=== PATIENT | male | born 1980 | race Caucasian/White ===

== ENCOUNTER → 2020-05-22 | Outpatient (CLI) | payer BC ==
[~2020-05-22] MED LIST: COLLAGEN HYDROLY1 GM MC; HYDROCODON-ACE1 EAC7 PO; MULTIVITAMINS1 EAC7 PO; VITAMIN D325 MC5 PO; ZOLPIDEM TARTRA10 MG PO
== END ==
LOC: M.LAB 17:27
PROVIDERS: ATTEND Surgery
DX: Z01.812 Encounter for preprocedural laboratory examination (principal); Z20.828 Contact with and (suspected) exposure to other viral communicable diseases

== ENCOUNTER → 2020-05-28 | Day surgery (SDC) | payer BC ==
[~2020-05-28] MED LIST changes: +ADVIL200 M3 PO; +TRAMADOL 50 MG50 MG PO; +TYLENOL EXTRA500 MG PO
--- NOTE | 2020-05-30 15:08 | PATH ---
[address] [address] PATHOLOGY RPT PROCEDURE Name: DENNIS STERLING Room: [facility].R.#: [id number] Admission: 05/28/20 Date of : 84 Discharge: Report #: [id number] Path Case #: [id number] [facility] Accession Number: [id number] . 01 Material submitted: . gallbladder - GALLBLADDER AND CONTENTS . 01 Clinical history: . BILIARY DYSKINESIA . 02 Diagnosis: Gallbladder and contents: - Chronic cholecystitis. . (KEVIN:mm; 05/30/2020) [facility] 05/30/2020 1209 Local . 02 Electronically signed: . Vick Castano MD, Pathologist NPI- [id number] . 01 Gross description: . The specimen is received in formalin labeled "Dennis Sterling, gallbladder and contents" and consists of an intact green gallbladder measuring 7.0 x 3.3 x 2.8 cm. The margin is inked black. Opening reveals a lumen filled with viscous green bile and no calculi. The mucosa is green and velvety with an average wall thickness of 0.1 cm. No masses are identified. Network Lead sections are submitted in A1. (SDY; 05/29/2020) SYU/SYU 05/29/2020 1328 Local . 02 Pathologist provided ICD-10: K81.1 . 02 CPT . 053114 Specimen Comment: A courtesy copy of this report has been sent to [phone], [phone] Specimen Comment: [id number] Specimen Comment: Report sent to / DR BLACKMAN Performed at: [address], [place] [id number] MD Ramon Pacheco MD Phone: [phone] Performed at: 02 [facility] [address], [place], [place] [id number] MD Vick Castano MD Phone: [phone]
--- NOTE | 2020-06-03 08:15 | OP ---
[address] [address] OPERATIVE REPORT Name: WISAMLOUISKevEBONI OTOOLE Room: [facility].#: [id number] Admission: 05/28/20 Attend Phys: Fredrick Jon DO Discharge: Date of : 84 Report #: [id number] THIS REPORT FOR: //name// cc: Pepe Humphreys John E. DO ~ CC: Fredrick Humphreys DO DICTATED BY: Mustapha Rahman DO DATE OF SERVICE: 05/28/2020 PREOPERATIVE DIAGNOSIS: Biliary dyskinesia. POSTOPERATIVE DIAGNOSIS: Biliary dyskinesia. SURGEON: Fredrick Jon DO CO-SURGEON: Mustapha Rahman, PGY5 CONGRESSIONAL DISTRICT AIDE: Naz Saudners, MS3 OPERATION: Laparoscopic cholecystectomy with fluorescent imaging. ANESTHESIA: General and transversus abdominis plain block by Anesthesia. ESTIMATED BLOOD LOSS: 20 mL. SPECIMEN: Gallbladder. COMPLICATIONS: None. INDICATIONS: The patient is a 40-year-old male, presented to clinic with complaints of postprandial right upper quadrant pain that radiated to his back. His imaging workup was consistent with biliary dyskinesia. He was informed of the risks and benefits of laparoscopic cholecystectomy with risks including but not limited to bleeding, infection, bile duct injury, bowel injury, chronic diarrhea, hernia formation, need for open procedure, need for reoperation. He understood this and decided to proceed with surgery. TECHNIQUE: After informed consent was obtained, the patient was brought to the operating room and placed in supine position. SCDs were on and running. Preoperative antibiotics were given. General anesthesia was administered with an ET tube. Bilateral transversus abdominis plane blocks were placed by anesthesia. The patient was prepped and draped in the usual sterile fashion. [place] [id number] OPERATIVE REPORT Name: EBONI STERLING Room: [facility].#: [id number] Admission: 05/28/20 Attend Phys: Fredrick Jon DO Discharge: Date of : 84 Report #: [id number] surgical pause was held to confirm proper patient and procedure. A vertical infraumbilical incision was made with an 11 blade. Dissection was carried through the dermis and subcutaneous fat using cautery. Fascia was identified, scored using cautery and elevated with 2 Kochers. Peritoneum was bluntly entered using Bryanna, 0 [address] was used to place stay sutures at the superior and inferior aspect of the fascial incision. The 5 mm balloon Macy trocar was inserted into the abdomen. The balloon was insufflated. The abdomen was insufflated. Camera was introduced into the abdomen. Attention was turned towards the right upper quadrant. The gallbladder was not visualized. There was omentum draped over the liver. The patient was positioned head up, right side up. A 5 mm port was placed in the epigastrium under direct visualization. A blunt grasper was used to sweep down the omentum from over the liver. There were multiple adhesions encasing the gallbladder circumferentially. These were unable to be swept down. Two additional ports were placed in the right upper quadrant under direct visualization. The gallbladder was then grasped and elevated. The adhesions were taken down using combination of cautery and blunt dissection until the Sriram's pouch was identified. [place] dissector was used to circumferentially dissect and identify the cystic duct. Fluorescence imaging was used to assist with visualization and the identity of the cystic duct was confirmed. Once the cystic duct was confirmed as the only ductal structure entering the gallbladder, it was doubly clipped using Weck Hem-o-lianna clips and cut using laparoscopic john. The gallbladder was then elevated and carefully dissected free until a posterior structure was identified. It was reviewed with fluorescent imaging, it was not fluorescent. This was felt to be the cystic artery. This was circumferentially dissected, singly clipped and cut using john. The gallbladder was then dissected free from the liver bed. Once completely free, it was placed in the EndoCatch bag and placed aside liver bed and clips were inspected. The clips were hemostatic. There was no bile leak. This was again confirmed with fluorescent imaging. The liver bed was hemostatic. The patient was positioned supine. All ports were removed under direct visualization. Abdomen was desufflated. The Macy trocar was removed. The specimen was removed through the umbilical incision. Previous stay sutures were elevated. A single ausmpq-af-dejfz was placed in addition to the 2 previous using 0 Vicryl. These were all tied down and cut. This wound was closed in layered fashion using 3-0 Vicryl and 4-0 Monocryl. Remainder of skin was closed using 4-0 Monocryl. Wounds were cleansed and dressed with Dermabond. The patient was emerged from anesthesia and transferred to the PACU in stable condition. All counts were correct. <ELECTRONICALLY SIGNED> By: Fredrick Jon DO 06/03/20 0815 0932 1004Apatricio Jon DO /nt
== END | disposition home or self-care (01) ==
LOC: M.SUR 06:26
PROVIDERS: ATTEND Surgery
DX: K82.8 Other specified diseases of gallbladder (principal); K81.1 Chronic cholecystitis; K21.9 Gastro-esophageal reflux disease without esophagitis; G43.909 Migraine, unspecified, not intractable, without status migrainosus; Z88.1 Allergy status to other antibiotic agents; Z88.5 Allergy status to narcotic agent; Z79.899 Other long term (current) drug therapy; Z98.890 Other specified postprocedural states